=== PATIENT | male | born 1955 | race Caucasian/White ===

== ENCOUNTER → 2016-11-22 | Outpatient (CLI) | payer OTHER ==
--- NOTE | 2016-11-22 14:07 | RADIOLOGY REPORT PS360 ---
CHEST(2 VIEWS-NOT PORTABLE) HISTORY: RT SIDED THORAICIC BACK PAIN ORDERING PHYSICIAN: СЕРГЕЙ ALCANTAR PATIENT AGE: 61 years COMPARISON: None available FINDINGS: The cardiomediastinal silhouette and pulmonary vascularity are within normal limits. There is patchy density present in the right infrahilar region suspicious for an area of infiltrate. No effusions or other significant anomalies. Mild degenerative changes thoracic spine. IMPRESSION: Patchy infiltrate in the right lower lung zone
[2016-11-22 16:56] LABS: HEMOGLOBIN 16.6 g/dL (14.1-18.0); LYMPH # 1.1 K/mm3 (0.7-4.5); LYMPH % 19.1 % (10-50)
[2016-11-22 18:49] LABS: BUN 9 mg/dL (7-18); GFR (ESTIMATED) 76 ML/MIN (>60)
== END ==
LOC: LAB 11:42 → RAD 11:42
PROVIDERS: Nurse Practitioner Family
DX: M54.6 Pain in thoracic spine (principal); R53.83 Other fatigue; E55.9 Vitamin D deficiency, unspecified